=== PATIENT | female | born 1955 | race Caucasian/White ===

== ENCOUNTER 2025-06-14 09:01 | Outpatient (CLI) | payer MEDICARE, SELFPAY | END 2025-06-14 09:02 | disposition home or self-care (01) | PROVIDERS: Visit Provider Family Medicine | DX: M81.0 Age-related osteoporosis without current pathological fracture (principal); C96.6 Unifocal Langerhans-cell histiocytosis; E03.9 Hypothyroidism, unspecified; E78.5 Hyperlipidemia, unspecified; R53.83 Other fatigue | CPT/HCPCS: 80053; 80061; 82306; 84439; 84443 ==